=== PATIENT | male | born 1945 | race Caucasian/White ===

== ENCOUNTER 2018-03-14 11:21 | Observation (INO) ==
[2018-03-14 12:15] LABS: Basophils # 0.1 10*3/uL (0.0-0.2); Eosinophils # 0.4 10*3/uL (0.0-0.87); Eosinophils % 5.7 % (0.00-10.9); Hematocrit 42.4 VOL% (42.0-52.0); Hemoglobin 14.4 GM/DL (14.0-18.0); Immature Granulocytes % 0.4 %; Immature Granulocytes Absolute 0.03 #; Lymphocytes # 2.8 10*3/uL (1.4-4.0); Mean Corpuscular Hemoglobin 30 PG (27-34); Mean Corpuscular Volume 87.4 FL (87-102); Monocytes # 0.9 10*3/uL (0.11-0.8); Monocytes % 13.1 % (1.7-12.7); Neutrophils # 2.5 10*3/uL (1.4-7.4); Neutrophils % 37.8 % (38.7-73.9); Platelet Count 218 T/CUMM (130-400); Red Blood Count 4.85 MC/CUMM (3.8-5.5); Red Cell Distribution Width 13.1 % (9.3-17.3); White Blood Count 6.7 T/CUMM (4-12)
[2018-03-14 12:31] LABS: Alanine Aminotransferase 22 U/L (16-61); Alkaline Phosphatase 79 U/L (45-117); Aspartate Amino Transferase 18 U/L (0-37); Blood Urea Nitrogen 19 MG/DL (7-18); Calcium 9.1 MG/DL (8.5-10.1); Glucose 131 MG/DL (74-106); Osmolality,Calculated 282.4 MOS/KG (273-304); Potassium 3.7 MMOL/L (3.5-5.1); Sodium 140 MMOL/L (136-145); Total Protein 7.3 G/DL (6.4-8.3); Troponin I Only < 0.015 NG/ML (0.00-0.045)
[2018-03-14 12:34] LABS: Giant Platelets Few; Hypochromasia 1+; Platelet Estimate Adequate
[2018-03-14] MEDS ORDERED: diphenhydrAMINE CAP 25 MG CAPSULE PO ONE (12:38)
[2018-03-14] MEDS ORDERED: DIAZEPAM 5 MG TABLET PO ONE (12:38)
[2018-03-14] MEDS ORDERED: POTASSIUM CHLORIDE RIDER 10 MEQ in PREMIX 1 EACH IV PRN (12:38)
[2018-03-14] MEDS ORDERED: MAGNESIUM SULF RIDER 2 GM in PREMIX 1 EACH IV PRN (12:38)
[2018-03-14] MEDS: SODIUM CHLORIDE 0.9% 1,000 ML IV SCH ×2 (12:45→20:21)
[2018-03-14] MEDS ORDERED: HEPARIN/NACL 0.9% 2 UNITS/ML 1,000 ML IV ONE (13:00)
[2018-03-14] MEDS ORDERED: HYDROmorphone 2 MG/1 ML VIAL ONE (13:24)
[2018-03-14] MEDS ORDERED: MIDAZOLAM 2 MG/2 ML VIAL ONE (13:25)
[2018-03-14] MEDS ORDERED: BIVALIRUDIN 250 MG VIAL IV ONE (14:02)
[2018-03-14] MEDS ORDERED: ASPIRIN 325 MG TABLET ONE (14:31)
[2018-03-14] MEDS ORDERED: GLUCAGON 1 MG VIAL IM PRN (14:33)
[2018-03-14] MEDS ORDERED: ZALEPLON 5 MG CAPSULE PO PRN (14:33)
[2018-03-14] MEDS ORDERED: PRASUGREL 10 MG TABLET ONE (14:33)
[2018-03-14] MEDS ORDERED: DEXTROSE 50% 25 GM/50 ML VIAL IV PRN (14:33)
[2018-03-14] MEDS ORDERED: ONDANSETRON 4 MG/2 ML VIAL IV PRN (14:33)
[2018-03-14] MEDS ORDERED: BISACODYL 5 MG TABLET PO PRN (14:36)
[2018-03-14] MEDS ORDERED: ACETAMINOPHEN 325 MG TABLET PO PRN (14:36)
[2018-03-14] MEDS ORDERED: guaiFENesin/DM ER 600-30 MG TABLET PO PRN (14:36)
[2018-03-14] MEDS ORDERED: NITROGLYCERIN SL 0.4 MG TABLET SL PRN (14:36)
[2018-03-14] MEDS: TRIAMCINOLONE 0.1% CREAM 15 GM TUBE TOP SCH (20:21)
[2018-03-14] MEDS ORDERED: ZALEPLON 5 MG CAPSULE PO SCH (21:00)
[2018-03-14] MEDS ORDERED: HydrOXYzine PAMOATE 25 MG CAPSULE PO SCH (21:00)
[2018-03-15] MEDS: SODIUM CHLORIDE 0.9% 1,000 ML IV SCH (04:50)
[2018-03-15 05:20] LABS: Basophils # 0.1 10*3/uL (0.0-0.2); Basophils % 0.7 % (0.0-0.8); Eosinophils # 0.5 10*3/uL (0.0-0.87); Eosinophils % 6.1 % (0.00-10.9); Hematocrit 39.2 VOL% (42.0-52.0); Hemoglobin 13.5 GM/DL (14.0-18.0); Immature Granulocytes % 0.4 %; Immature Granulocytes Absolute 0.03 #; Lymphocytes # 2.3 10*3/uL (1.4-4.0); Lymphocytes % 27.7 % (21.2-54.2); Mean Corpuscular HGB Conc 34.4 GM/DL (32-36); Mean Corpuscular Hemoglobin 30 PG (27-34); Mean Corpuscular Volume 88.1 FL (87-102); Mean Platelet Volume 11.2 FL (9.6-12.0); Monocytes # 1.1 10*3/uL (0.11-0.8); Monocytes % 13.2 % (1.7-12.7); Neutrophils # 4.3 10*3/uL (1.4-7.4); Neutrophils % 51.9 % (38.7-73.9); Platelet Count 195 T/CUMM (130-400); Red Blood Count 4.45 MC/CUMM (3.8-5.5); Red Cell Distribution Width 12.9 % (9.3-17.3); White Blood Count 8.2 T/CUMM (4-12)
[2018-03-15 05:52] LABS: Blood Urea Nitrogen 16 MG/DL (7-18); Calcium 8.9 MG/DL (8.5-10.1); Cholesterol 102 MG/DL (50-200); Glucose 95 MG/DL (74-106); HDL Cholesterol 33 MG/DL (40-60); Osmolality,Calculated 281.3 MOS/KG (273-304); Potassium 4.1 MMOL/L (3.5-5.1); Risk Ratio 3.09; Sodium 141 MMOL/L (136-145); Triglycerides 90 MG/DL (2-150); Troponin I Only 0.036 NG/ML (0.00-0.045)
[2018-03-15 07:48] VITALS: BP 136/71
[2018-03-15] MEDS: TRIAMCINOLONE 0.1% CREAM 15 GM TUBE TOP SCH (08:35)
[2018-03-15] MEDS ORDERED: metFORMIN 500 MG TABLET PO SCH (09:00)
[2018-03-15] MEDS ORDERED: ATENOLOL 50 MG TABLET PO SCH (09:00)
[2018-03-15] MEDS ORDERED: FINASTERIDE 5 MG TABLET PO SCH (09:00)
[2018-03-15] MEDS ORDERED: PANTOPRAZOLE 40 MG TABLET PO SCH (09:00)
[2018-03-15] MEDS ORDERED: POTASSIUM CHLORIDE 20 MEQ TABLET PO SCH (09:00)
[2018-03-15] MEDS ORDERED: LISINOPRIL 20 MG TABLET PO SCH (09:00)
[2018-03-15] MEDS ORDERED: ATORVASTATIN 40 MG TABLET PO SCH (09:00)
[2018-03-15] MEDS ORDERED: ASPIRIN EC 81 MG TABLET PO SCH (09:00)
[2018-03-15] MEDS ORDERED: MAGNESIUM OXIDE 400 MG TABLET PO SCH (09:00)
[2018-03-15] MEDS ORDERED: PRASUGREL 10 MG TABLET PO SCH (09:00)
[2018-03-15] MEDS ORDERED: MELOXICAM 7.5 MG TABLET PO SCH (09:00)
[2018-03-15] MEDS ORDERED: amLODIPine 5 MG TABLET PO SCH (09:00)
[2018-03-15] MEDS ORDERED: TAMSULOSIN 0.4 MG CAPSULE PO SCH (09:00)
== END 2018-03-15 12:06 | disposition home or self-care (01) ==
LOC: N.EDINP 11:21 → N.ED 11:21 → N.TELEN 12:53
PROVIDERS: ADMIT Internal Medicine Cardiovascular Disease; ATTEND Internal Medicine Cardiovascular Disease

== ENCOUNTER 2018-03-26 13:57 | Inpatient (IN) ==
[2018-03-26] MEDS ORDERED: SODIUM CHLORIDE 0.9% 2,000 ML IV STA (14:17)
[2018-03-26] MEDS ORDERED: ONDANSETRON 4 MG/2 ML VIAL IV STA (14:17)
[2018-03-26] MEDS ORDERED: PANTOPRAZOLE INJ 80 MG in SODIUM CHLORIDE 0.9% 100 ML IV STA (14:17)
[2018-03-26 14:31] LABS: Basophils # 0.1 10*3/uL (0.0-0.2); Basophils % 0.9 % (0.0-0.8); Eosinophils # 0.3 10*3/uL (0.0-0.87); Eosinophils % 3.7 % (0.00-10.9); Hematocrit 35.1 VOL% (42.0-52.0); Hemoglobin 11.9 GM/DL (14.0-18.0); Immature Granulocytes % 0.9 %; Immature Granulocytes Absolute 0.08 #; Lymphocytes # 3.4 10*3/uL (1.4-4.0); Lymphocytes % 37.3 % (21.2-54.2); Mean Corpuscular HGB Conc 33.9 GM/DL (32-36); Mean Corpuscular Hemoglobin 30 PG (27-34); Mean Corpuscular Volume 89.1 FL (87-102); Mean Platelet Volume 10.6 FL (9.6-12.0); Monocytes # 0.9 10*3/uL (0.11-0.8); Monocytes % 10.1 % (1.7-12.7); Neutrophils # 4.3 10*3/uL (1.4-7.4); Neutrophils % 47.1 % (38.7-73.9); Platelet Count 293 T/CUMM (130-400); Red Blood Count 3.94 MC/CUMM (3.8-5.5); Red Cell Distribution Width 12.6 % (9.3-17.3); White Blood Count 9.2 T/CUMM (4-12)
[2018-03-26 14:41] LABS: Partial Thromboplastin Time 23.3 SECS (0-40)
[2018-03-26 14:58] LABS: Alanine Aminotransferase 18 U/L (16-61); Albumin 3.3 G/DL (3.4-5.0); Alkaline Phosphatase 79 U/L (45-117); Aspartate Amino Transferase 10 U/L (0-37); Blood Urea Nitrogen 33 MG/DL (7-18); Glucose 189 MG/DL (74-106); Osmolality,Calculated 284.8 MOS/KG (273-304); Potassium 4.5 MMOL/L (3.5-5.1); Sodium 137 MMOL/L (136-145); Total Protein 6.9 G/DL (6.4-8.3); Troponin I Only < 0.015 NG/ML (0.00-0.045)
[2018-03-26] MEDS ORDERED: PANTOPRAZOLE 40 MG VIAL IV ONE (15:11)
[2018-03-26] MEDS ORDERED: MAGNESIUM SULF RIDER 2 GM in PREMIX 1 EACH IV PRN (15:46)
[2018-03-26] MEDS ORDERED: MAGNESIUM SULF RIDER 4 GM in PREMIX 1 EACH IV PRN (15:46)
[2018-03-26] MEDS ORDERED: MORPHINE 4 MG/1 ML VIAL IV PRN (15:46)
[2018-03-26] MEDS ORDERED: SODIUM CHLORIDE 0.9% 1,000 ML IV PRN (15:46)
[2018-03-26] MEDS ORDERED: NITROGLYCERIN SL 0.4 MG TABLET SL PRN (15:53)
[2018-03-26 17:28] LABS: Hematocrit 31.9 VOL% (42.0-52.0); Hemoglobin 10.9 GM/DL (14.0-18.0)
[2018-03-26 17:41] LABS: Apearance,Urine CLEAR (Clear); Bilirubin,Urine Negative (Negative); Blood, Urine Negative (Negative); Glucose,Urine (UA) 50 mg/dL (Negative); Hyaline Casts,Urine 3 /LPF (0-3); Ketones,Urine Negative (Negative); Mucus,Urine Occasional /LPF (Occasional); Nitrite,Urine Negative (Negative); Protein,Urine Negative; RBC,Urine <1 /HPF (0-4); Urine Color Yellow (Yellow); Urine Specific Gravity 1.016 (1.001-1.035); Urine Urobilinogen < 2.0 EU/DL (0.2-1.0); WBC,Urine <1 /HPF (0-6)
[2018-03-26] MEDS: SODIUM CHLORIDE 0.9% 1,000 ML IV SCH (18:01)
[2018-03-26] MEDS: PANTOPRAZOLE INJ 200 MG in SODIUM CHLORIDE 0.9% 250 ML IV SCH (18:07)
[2018-03-26] MEDS: ZALEPLON 5 MG CAPSULE PO PRN (22:25)
[2018-03-26 23:18] LABS: Hemoglobin 9.4 GM/DL (14.0-18.0)
[2018-03-27] MEDS: ZALEPLON 5 MG CAPSULE PO PRN ×3 (00:02→23:45)
[2018-03-27] MEDS: SODIUM CHLORIDE 0.9% 1,000 ML IV SCH ×5 (02:28→20:45)
[2018-03-27 05:20] LABS: Hematocrit 26.2 VOL% (42.0-52.0); Hemoglobin 8.8 GM/DL (14.0-18.0)
[2018-03-27 05:36] LABS: INR 1.1; PT Patient Result 11.1 SECS
[2018-03-27] MEDS: ATENOLOL 50 MG TABLET PO SCH (08:35)
[2018-03-27] MEDS: TAMSULOSIN 0.4 MG CAPSULE PO SCH (08:35)
[2018-03-27] MEDS: ATORVASTATIN 40 MG TABLET PO SCH (08:35)
[2018-03-27] MEDS: FINASTERIDE 5 MG TABLET PO SCH (08:35)
[2018-03-27 10:45] LABS: Hematocrit 25.4 VOL% (42.0-52.0); Hemoglobin 8.6 GM/DL (14.0-18.0)
[2018-03-27] MEDS: SELENIUM 200 MCG TABLET PO SCH (11:00)
[2018-03-27] MEDS ORDERED: GLUCAGON 1 MG VIAL IM PRN (11:53)
[2018-03-27] MEDS ORDERED: DEXTROSE 50% 25 GM/50 ML VIAL IV PRN (11:53)
[2018-03-27] MEDS: PANTOPRAZOLE INJ 200 MG in SODIUM CHLORIDE 0.9% 250 ML IV SCH ×2 (16:38→22:17)
[2018-03-27 16:56] LABS: Hematocrit 26.3 VOL% (42.0-52.0); Hemoglobin 8.8 GM/DL (14.0-18.0)
[2018-03-27] MEDS: INSULIN LISPRO 100 UNIT/ML SUBCUT SCH ×2 (18:26→20:37)
[2018-03-27] MEDS: ASPIRIN EC 81 MG TABLET PO SCH (20:52)
[2018-03-27] MEDS: HydrOXYzine PAMOATE 50 MG CAPSULE PO PRN (20:52)
[2018-03-27 23:04] LABS: Hematocrit 25.7 VOL% (42.0-52.0); Hemoglobin 8.7 GM/DL (14.0-18.0)
[2018-03-28] MEDS: SODIUM CHLORIDE 0.9% 1,000 ML IV SCH ×3 (04:42→21:33)
[2018-03-28 05:20] LABS: Hematocrit 26.4 VOL% (42.0-52.0); Hemoglobin 8.8 GM/DL (14.0-18.0)
[2018-03-28 05:21] LABS: Basophils % 0.6 % (0.0-0.8); Eosinophils # 0.7 10*3/uL (0.0-0.87); Eosinophils % 10.2 % (0.00-10.9); Hematocrit 25.7 VOL% (42.0-52.0); Hemoglobin 8.9 GM/DL (14.0-18.0); Immature Granulocytes % 0.6 %; Immature Granulocytes Absolute 0.04 #; Lymphocytes # 2.6 10*3/uL (1.4-4.0); Mean Corpuscular HGB Conc 34.6 GM/DL (32-36); Mean Corpuscular Hemoglobin 31 PG (27-34); Mean Corpuscular Volume 88.3 FL (87-102); Mean Platelet Volume 10.2 FL (9.6-12.0); Monocytes # 0.6 10*3/uL (0.11-0.8); Monocytes % 8.6 % (1.7-12.7); Neutrophils # 3.1 10*3/uL (1.4-7.4); Platelet Count 196 T/CUMM (130-400); Red Blood Count 2.91 MC/CUMM (3.8-5.5); Red Cell Distribution Width 12.9 % (9.3-17.3); White Blood Count 7.1 T/CUMM (4-12)
[2018-03-28 05:29] LABS: PT Patient Result 10.7 SECS
[2018-03-28 05:56] LABS: Calcium 8.5 MG/DL (8.5-10.1); Osmolality,Calculated 284.8 MOS/KG (273-304); Potassium 4.2 MMOL/L (3.5-5.1)
[2018-03-28] MEDS: INSULIN LISPRO 100 UNIT/ML SUBCUT SCH ×4 (07:30→21:25)
[2018-03-28] MEDS: CLOPIDOGREL 75 MG TABLET PO SCH (09:36)
[2018-03-28] MEDS: ATENOLOL 50 MG TABLET PO SCH (09:36)
[2018-03-28] MEDS: FINASTERIDE 5 MG TABLET PO SCH (09:36)
[2018-03-28] MEDS: ATORVASTATIN 40 MG TABLET PO SCH (09:36)
[2018-03-28] MEDS: SELENIUM 200 MCG TABLET PO SCH (09:36)
[2018-03-28] MEDS: TAMSULOSIN 0.4 MG CAPSULE PO SCH (09:39)
[2018-03-28 10:53] LABS: Hematocrit 25.5 VOL% (42.0-52.0); Hemoglobin 8.8 GM/DL (14.0-18.0)
[2018-03-28] MEDS ORDERED: CLOPIDOGREL 300 MG TABLET PO ONE (17:23)
[2018-03-28 17:49] LABS: Hematocrit 26.9 VOL% (42.0-52.0); Hemoglobin 9.2 GM/DL (14.0-18.0)
[2018-03-28] MEDS: ZALEPLON 5 MG CAPSULE PO PRN (21:33)
[2018-03-28] MEDS: ASPIRIN EC 81 MG TABLET PO SCH (21:33)
[2018-03-28 22:32] LABS: Hematocrit 24.9 VOL% (42.0-52.0); Hemoglobin 8.5 GM/DL (14.0-18.0)
[2018-03-29 04:21] LABS: Basophils # 0.1 10*3/uL (0.0-0.2); Basophils % 0.6 % (0.0-0.8); Eosinophils # 0.7 10*3/uL (0.0-0.87); Eosinophils % 7.9 % (0.00-10.9); Hematocrit 25.2 VOL% (42.0-52.0); Hemoglobin 8.8 GM/DL (14.0-18.0); Immature Granulocytes % 0.6 %; Immature Granulocytes Absolute 0.05 #; Lymphocytes # 2.7 10*3/uL (1.4-4.0); Lymphocytes % 31.6 % (21.2-54.2); Mean Corpuscular HGB Conc 34.9 GM/DL (32-36); Mean Corpuscular Hemoglobin 31 PG (27-34); Mean Corpuscular Volume 87.8 FL (87-102); Mean Platelet Volume 10.5 FL (9.6-12.0); Monocytes # 0.8 10*3/uL (0.11-0.8); Monocytes % 9.5 % (1.7-12.7); Neutrophils # 4.3 10*3/uL (1.4-7.4); Neutrophils % 49.8 % (38.7-73.9); Platelet Count 199 T/CUMM (130-400); Red Blood Count 2.87 MC/CUMM (3.8-5.5); Red Cell Distribution Width 12.9 % (9.3-17.3); White Blood Count 8.6 T/CUMM (4-12)
[2018-03-29 04:41] LABS: Calcium 7.7 MG/DL (8.5-10.1); Potassium 3.7 MMOL/L (3.5-5.1)
[2018-03-29] MEDS: SODIUM CHLORIDE 0.9% 1,000 ML IV SCH ×2 (05:31→16:40)
[2018-03-29 05:58] LABS: PT Patient Result 10.6 SECS
[2018-03-29] MEDS: INSULIN LISPRO 100 UNIT/ML SUBCUT SCH ×4 (07:36→21:16)
[2018-03-29] MEDS: ATORVASTATIN 40 MG TABLET PO SCH (08:45)
[2018-03-29] MEDS: PANTOPRAZOLE 40 MG VIAL IV SCH ×2 (08:45→21:15)
[2018-03-29] MEDS: TAMSULOSIN 0.4 MG CAPSULE PO SCH (08:45)
[2018-03-29] MEDS: FINASTERIDE 5 MG TABLET PO SCH (08:45)
[2018-03-29] MEDS: ATENOLOL 50 MG TABLET PO SCH (08:45)
[2018-03-29] MEDS: SELENIUM 200 MCG TABLET PO SCH (08:45)
[2018-03-29] MEDS: CLOPIDOGREL 75 MG TABLET PO SCH (09:09)
[2018-03-29] MEDS: ASPIRIN EC 81 MG TABLET PO SCH (21:16)
[2018-03-29] MEDS: ZALEPLON 5 MG CAPSULE PO PRN (21:16)
[2018-03-29] MEDS: HydrOXYzine PAMOATE 50 MG CAPSULE PO PRN (21:22)
[2018-03-30] MEDS: SODIUM CHLORIDE 0.9% 1,000 ML IV SCH ×2 (00:14→08:25)
[2018-03-30 05:56] LABS: Basophils # 0.1 10*3/uL (0.0-0.2); Basophils % 0.8 % (0.0-0.8); Eosinophils # 0.6 10*3/uL (0.0-0.87); Eosinophils % 8.4 % (0.00-10.9); Hematocrit 24.9 VOL% (42.0-52.0); Hemoglobin 8.4 GM/DL (14.0-18.0); Immature Granulocytes % 0.7 %; Immature Granulocytes Absolute 0.05 #; Lymphocytes # 2.2 10*3/uL (1.4-4.0); Lymphocytes % 28.5 % (21.2-54.2); Mean Corpuscular HGB Conc 33.7 GM/DL (32-36); Mean Corpuscular Hemoglobin 30 PG (27-34); Mean Corpuscular Volume 90.2 FL (87-102); Monocytes # 0.7 10*3/uL (0.11-0.8); Monocytes % 9.7 % (1.7-12.7); Neutrophils # 3.9 10*3/uL (1.4-7.4); Neutrophils % 51.9 % (38.7-73.9); Platelet Count 208 T/CUMM (130-400); Red Blood Count 2.76 MC/CUMM (3.8-5.5); Red Cell Distribution Width 13.1 % (9.3-17.3); White Blood Count 7.5 T/CUMM (4-12)
[2018-03-30 06:27] LABS: Calcium 8.3 MG/DL (8.5-10.1); Osmolality,Calculated 286.7 MOS/KG (273-304); Potassium 3.8 MMOL/L (3.5-5.1)
[2018-03-30] MEDS: INSULIN LISPRO 100 UNIT/ML SUBCUT SCH ×4 (07:34→21:03)
[2018-03-30] MEDS: PANTOPRAZOLE 40 MG VIAL IV SCH ×2 (09:05→21:00)
[2018-03-30] MEDS: IRON (CARBONYL)/VIT C/B12/FA TABLET PO SCH (09:06)
[2018-03-30] MEDS: ATENOLOL 50 MG TABLET PO SCH (09:06)
[2018-03-30] MEDS: FINASTERIDE 5 MG TABLET PO SCH (09:06)
[2018-03-30] MEDS: SELENIUM 200 MCG TABLET PO SCH (09:06)
[2018-03-30] MEDS: TAMSULOSIN 0.4 MG CAPSULE PO SCH (09:06)
[2018-03-30] MEDS: CLOPIDOGREL 75 MG TABLET PO SCH (09:06)
[2018-03-30] MEDS: ATORVASTATIN 40 MG TABLET PO SCH (09:06)
[2018-03-30] MEDS: ZALEPLON 5 MG CAPSULE PO PRN (21:00)
[2018-03-30] MEDS: ASPIRIN EC 81 MG TABLET PO SCH (21:00)
[2018-03-30] MEDS: HydrOXYzine PAMOATE 50 MG CAPSULE PO PRN (21:00)
[2018-03-31 06:03] LABS: Basophils # 0.1 10*3/uL (0.0-0.2); Basophils % 0.9 % (0.0-0.8); Eosinophils # 0.7 10*3/uL (0.0-0.87); Eosinophils % 8.8 % (0.00-10.9); Hematocrit 25.1 VOL% (42.0-52.0); Hemoglobin 8.5 GM/DL (14.0-18.0); Immature Granulocytes % 1.1 %; Immature Granulocytes Absolute 0.09 #; Lymphocytes # 2.4 10*3/uL (1.4-4.0); Lymphocytes % 30.1 % (21.2-54.2); Mean Corpuscular HGB Conc 33.9 GM/DL (32-36); Mean Corpuscular Hemoglobin 30 PG (27-34); Mean Corpuscular Volume 89.3 FL (87-102); Mean Platelet Volume 10.7 FL (9.6-12.0); Monocytes # 0.9 10*3/uL (0.11-0.8); Monocytes % 10.8 % (1.7-12.7); Neutrophils # 3.9 10*3/uL (1.4-7.4); Neutrophils % 48.3 % (38.7-73.9); Platelet Count 226 T/CUMM (130-400); Red Blood Count 2.81 MC/CUMM (3.8-5.5); Red Cell Distribution Width 13.2 % (9.3-17.3); White Blood Count 8.1 T/CUMM (4-12)
[2018-03-31 06:51] LABS: Calcium 8.3 MG/DL (8.5-10.1); Osmolality,Calculated 286.7 MOS/KG (273-304); Potassium 3.9 MMOL/L (3.5-5.1)
[2018-03-31 08:13] VITALS: BP 122/58
[2018-03-31] MEDS: INSULIN LISPRO 100 UNIT/ML SUBCUT SCH (09:05)
[2018-03-31] MEDS: SELENIUM 200 MCG TABLET PO SCH (09:11)
[2018-03-31] MEDS: ATENOLOL 50 MG TABLET PO SCH (09:11)
[2018-03-31] MEDS: PANTOPRAZOLE 40 MG VIAL IV SCH (09:11)
[2018-03-31] MEDS: ATORVASTATIN 40 MG TABLET PO SCH (09:12)
[2018-03-31] MEDS: TAMSULOSIN 0.4 MG CAPSULE PO SCH (09:12)
[2018-03-31] MEDS: IRON (CARBONYL)/VIT C/B12/FA TABLET PO SCH (09:12)
[2018-03-31] MEDS: FINASTERIDE 5 MG TABLET PO SCH (09:12)
[2018-03-31] MEDS: CLOPIDOGREL 75 MG TABLET PO SCH (09:12)
== END 2018-03-31 11:55 | disposition home or self-care (01) | DRG 813 ==
LOC: N.ED 13:57 → N.EDINP 15:46 → N.CC 17:03 → N.TELEN 03-29 14:56
PROVIDERS: ADMIT Family Medicine; ATTEND Family Medicine